=== PATIENT | male | born 1940 | race Caucasian/White ===

== ENCOUNTER 2021-04-20 16:04 | Emergency (ER) | payer OTHER ==
[2021-04-20] MEDS ORDERED: ONDANSETRON 4 MG/2 ML VIAL ONE (16:58)
[2021-04-20] MEDS ORDERED: NA CHLORIDE 0.9% 500 ML ONE (16:58)
[2021-04-20 16:59] LABS: Absolute Lymphocytes (CBC) 0.6 K/uL (0.7-4.9); Basophils % 0.1 % (0-1.3); Hematocrit 42.7 % (39.6-49.0); Lymphocytes % 5.8 % (15.3-44.8); MPV 8.3 fL (7.6-11.3); RBC Red Blood Cell Count 4.32 M/uL (4.33-5.43)
[2021-04-20 17:02] LABS: Protime INR 1.07
[2021-04-20 17:20] LABS: Urine Blood Negative (Negative); Urine Glucose Negative (Negative); Urine Protein Negative (Negative); Urine pH 7.5 (5.0-7.0)
[2021-04-20 17:24] LABS: ALT/SGPT 33 U/L (12-78); AST/SGOT 22 U/L (15-37); Albumin 3.8 g/dL (3.4-5.0); Alkaline Phosphatase 86 U/L (45-117); BUN Blood Urea Nitrogen 18 mg/dL (7-18); Bicarbonate 22 mmol/L (21-32); Bilirubin Direct 0.2 mg/dL (0-0.2); Glucose Level 143 mg/dL (74-106); Potassium 3.8 mmol/L (3.5-5.1); Protein, Total 8.3 g/dL (6.4-8.2); Sodium Level 140 mmol/L (136-145)
[2021-04-20 17:38] LABS: Barbiturates NEGATIVE (NEGATIVE); Benzodiazepines NEGATIVE (NEGATIVE); Cocaine NEGATIVE (NEGATIVE); METHAMPHETAM NEGATIVE (NEGATIVE); Methadone NEGATIVE (NEGATIVE); Opiates NEGATIVE (NEGATIVE); Phencyclidine NEGATIVE (NEGATIVE); THC Cannibis NEGATIVE (NEGATIVE)
--- NOTE | 2021-04-20 18:04 | RAD REPORT ---
EXAM DESCRIPTION: CTAbdomen Pelvis W Contrast - 04/20/2021 5:55 pm CLINICAL HISTORY: . diarrhea nausea, vomiting, abdominal cramping COMPARISON: No comparisons TECHNIQUE: Biphasic CT imaging of the abdomen and pelvis was performed with 100 ml non-ionic IV cont rast. All CT scans are performed using dose optimization technique as appropriate and may include automated exposure control or mA/KV adjustment according to patient size. FINDINGS: Lower chest: No acute abnormality. Liver: No acute abnormality or suspicious lesions. Biliary: No biliary ductal dilatation. Cholelithiasis . Stomach: No significant focal abnormality. Duodenum: No significant focal abnormality. Pancreas: No significant abnormality. Spleen: No significant abnormality. Adrenal: No suspicious lesions. Kidney/ureter: No hydronephrosis. No renal calculi. Renal cysts. Retroperitoneum: No retroperitoneal adenopathy. Vascular: No aneurysm. Atherosclerosis . Bowel: Nonspecific fluid throughout the small bowel and colon.. Peritoneum: No ascites or free air. Small fat containing inguinal hernias. Bladder: Grossly unremarkable. Reproductive: No adnexal masses. Bones: No acute fracture. Other: n/a IMPRESSION: Scattered segments of fluid-filled small bowel in diffuse fluid-filled colon concerning for enterocolitis. No bowel obstruction or other complicating features identified.
--- NOTE | 2021-04-20 18:34 | ER ---
Nurse's Notes [facility] Name: Eusebio Nolan Age: 80 yrs Sex: Male : 1940 Arrival Date: 04/20/2021 Time: 16:05 Bed 25 Private MD: Diagnosis: Diarrhea, unspecified;Vomiting Presentation: 04/20 16:10 Chief complaint: N/V/D and dizziness after eating mushrooms from front yard this morning. Coronavirus screen: At this time, the client does not indicate any symptoms associated with coronavirus-19. Ebola Screen: No symptoms or risks identified at this time. Initial Sepsis Screen: Does the patient meet any 2 criteria? No. Patient's initial sepsis screen is negative. Does the patient have a suspected source of infection? No. Patient's initial sepsis screen is negative. Risk Assessment: Do you want to hurt yourself or someone else? Patient reports no desire to harm self or others. Onset of symptoms was April 20, 2021. 16:10 Method Of Arrival: Ambulatory hb 16:10 Acuity: CHRISTINA 3 hb Triage Assessment: 17:20 General: Appears in no apparent distress. Behavior is calm, cooperative, appropriate oh for age. Historical: - Allergies: 16:12 No Known Allergies; hb - Immunization history:: Client reports receiving the 2nd dose of the Covid vaccine. - Social history:: Smoking status: Patient denies any tobacco usage or history of. Screenin:20 Abuse screen: Denies threats or abuse. Nutritional screening: No deficits noted. oh Tuberculosis screening: No symptoms or risk factors identified. Fall Risk None identified. Assessment: 17:19 GI: Reports nausea, vomiting, after eating mushrooms. oh 18:44 Reassessment: Patient appears in no apparent distress at this time. Patient and/or aj2 family updated on plan of care and expected duration. Pain level reassessed. Patient is alert, oriented x 3, equal unlabored respirations, skin warm/dry/pink. Patient denies pain at this time. Pain: Denies pain. GI: Abdomen is round. 18:55 Reassessment: Per provider (Hussein) discharge patient after COVID- 19 results.. aj2 Vital Signs: 16:10 BP 123 / 103; Pulse 77; Resp 16; Temp 97.4; Pulse Ox 100% on R/A; Weight 90.72 kg; hb Height 6 ft. (182.88 cm); Pain 2/10; 18:44 BP 150 / 80; Pulse 61; Resp 18; Temp 97.4; Pulse Ox 99% ; aj2 19:38 BP 144 / 81; Pulse 58; Resp 16; Temp 98.4(O); Pulse Ox 99% on R/A; cc4 16:10 Body Mass Index 27.12 (90.72 kg, 182.88 cm) hb Vitals: 18:44 Cardiac Rhythm Assessment Sinus rhythm. aj2 ED Course: 16:05 Patient arrived in ED. ds1 16:11 Triage completed. hb 16:12 Arm band placed on. hb 16:16 Hussein Mesa NP is PHCP. pm1 16:16 Igor Rivera MD is Attending Physician. pm1 17:20 Inserted saline lock: 22 gauge in left antecubital area, using aseptic technique. Blood oh collected. 17:21 Bed in low position. Call light in reach. Side rails up X 1. Adult w/ patient. oh 17:55 CT Abd/Pelvis - IV Contrast Only In Process Unspecified. EDMS 18:41 Jennifer Reyes is Primary Nurse. aj2 18:44 No apparent distress. Resting quietly. aj2 18:44 No provider procedures requiring assistance completed. IV is patent, is intact. aj2 19:38 IV discontinued, intact, bleeding controlled, No redness/swelling at site. Pressure cc4 dressing applied. Administered Medications: 16:40 Drug: NS 0.9% 500 ml Route: IV; Rate: bolus; Site: left antecubital; oh 20:03 Follow up: IV Intake: 1000ml cc4 16:40 Drug: Zofran (Ondansetron) 4 mg Route: IVP; Site: left antecubital; oh 19:38 Follow up: Response: No adverse reaction; Marked relief of symptoms; Nausea is decreasedcc4 Intake: 20:03 IV: 1000ml; Total: 1000ml. cc4 Outcome: 18:34 Discharge ordered by . pm1 19:38 Discharged to home ambulatory. cc4 19:38 Condition: improved 19:38 Discharge instructions given to patient, Instructed on discharge instructions, follow up and referral plans. medication usage, Demonstrated understanding of instructions, follow-up care, medications. 20:04 Patient left the ED. cc4 Signatures: Dispatcher [employer] EDMS Nereida Roberts ds1 Hussein Mesa, CARTON REPAIRER CARTON REPAIRER pm1 Juliet Paulino, RN RN Jennifer Mejia aj2 Rachel Bailey RN RN cc4 Jacob Medina RN RN oh
--- NOTE | 2021-04-20 18:34 | EDPHYS ---
Physician Documentation [facility] Name: Eusebio Nolan Age: 80 yrs Sex: Male : 1940 Arrival Date: 04/20/2021 Time: 16:05 Bed 25 Private MD: ED Physician Igor Rivera HPI: 04/20 16:30 This 80 yrs old Male presents to ER via Ambulatory with complaints of pm1 Nausea/Vomiting/Diarrhea, Dizziness. 16:30 The patient presents to the emergency department with vomiting, 1 times since the onset pm1 of symptoms, described as undigested food, Banana, diarrhea, 5 times since the onset of symptoms, abdominal pain, of the right lower quadrant and left lower quadrant, described as crampy, and does not radiate. Onset: The symptoms/episode began/occurred 3 hour(s) ago. Possible causes: Mushrooms in front yard and bad banana. The symptoms are aggravated by nothing. The symptoms are alleviated by nothing. Associated signs and symptoms: Pertinent positives: abdominal pain, Dizziness, Pertinent negatives: fever. Severity of symptoms: in the emergency department the symptoms are unchanged. The patient has not experienced similar symptoms in the past, Patient reports eating these mushrooms on multiple occasions throughout his life, last ingestion of these mushrooms 3 years ago. The patient has not recently seen a physician. Patient ate mushrooms found in his yard this morning at approximately 11 am with eggs. Ate an old bad banana around 1130. Onset of nausea vomiting and diarrhea 2 hours after ingestion. Historical: - Allergies: 16:12 No Known Allergies; hb - Immunization history:: Client reports receiving the 2nd dose of the Covid vaccine. - Social history:: Smoking status: Patient denies any tobacco usage or history of. ROS: 16:30 Constitutional: Negative for fever, chills, and weight loss, Cardiovascular: Negative pm1 for chest pain, palpitations, and edema, Respiratory: Negative for shortness of breath, cough, wheezing, and pleuritic chest pain. 16:30 Back: Negative for injury and pain, : Negative for injury, bleeding, discharge, and swelling, MS/Extremity: Negative for injury and deformity, Skin: Negative for injury, rash, and discoloration. 16:30 Abdomen/GI: Positive for nausea, vomiting, and diarrhea, abdominal cramps. 16:30 Neuro: Positive for dizziness, Negative for headache, numbness, tingling, weakness. 16:30 All other systems are negative. Exam: 16:30 Constitutional: This is a well developed, well nourished patient who is awake, alert, pm1 and in no acute distress. Head/Face: Normocephalic, atraumatic. 16:30 Back: No spinal tenderness. No costovertebral tenderness. Full range of motion. Skin: Warm, dry with normal turgor. Normal color with no rashes, no lesions, and no evidence of cellulitis. MS/ Extremity: Pulses equal, no cyanosis. Neurovascular intact. Full, normal range of motion. 16:30 Eyes: Exam is negative for acute changes, Extraocular movements: intact throughout, Conjunctiva: no acute changes, no injection, Sclera: no acute changes, icterus, is not appreciated. 16:30 ENT: Exam is negative for Mouth: is normal, no acute changes, Lips: normal, moist, Oral mucosa: normal, pink and intact, moist. 16:30 Neck: Exam negative for acute changes, ROM/movement: is normal, is supple, without pain, no range of motions limitations, no meningismus, no nuchal rigidity. 16:30 Cardiovascular: Rate: normal, Rhythm: regular, Pulses: no pulse deficits are appreciated, Heart sounds: normal, normal S1and S2, Edema: is not appreciated. 16:30 Respiratory: Exam negative for acute changes, respiratory distress, shortness of breath, Breath sounds: are clear throughout. 16:30 Abdomen/GI: Inspection: obese Palpation: abdomen is soft and non-tender, in all quadrants. 16:30 Neuro: Exam negative for acute changes, Orientation: is normal, Mentation: is normal, Motor: is normal, moves all fours, Gait: is steady, at a normal pace, without difficulty. 19:02 ECG was reviewed by the Attending Physician. rn Vital Signs: 16:10 BP 123 / 103; Pulse 77; Resp 16; Temp 97.4; Pulse Ox 100% on R/A; Weight 90.72 kg; hb Height 6 ft. (182.88 cm); Pain 2/10; 18:44 BP 150 / 80; Pulse 61; Resp 18; Temp 97.4; Pulse Ox 99% ; aj2 19:38 BP 144 / 81; Pulse 58; Resp 16; Temp 98.4(O); Pulse Ox 99% on R/A; cc4 16:10 Body Mass Index 27.12 (90.72 kg, 182.88 cm) hb MDM: 16:19 Patient medically screened. pm1 18:33 Data reviewed: vital signs. Data interpreted: Pulse oximetry: on room air is 100 %. pm1 Interpretation: normal. Counseling: I had a detailed discussion with the patient and/or guardian regarding: the historical points, exam findings, and any diagnostic results supporting the discharge/admit diagnosis, lab results, radiology results, the need for outpatient follow up, to return to the emergency department if symptoms worsen or persist or if there are any questions or concerns that arise at home. 18:34 Differential diagnosis: Nonspecific abd pain, viral gastroenteritis, gastroenteritis, pm1 Toxic effect of mushrooms, food poisoning from old banana, covid, flu. 04/20 16:30 Order name: Acetaminophen; Complete Time: 17:29 pm1 04/20 16:30 Order name: Basic Metabolic Panel; Complete Time: 17:29 pm1 04/20 16:30 Order name: CBC with Diff; Complete Time: 17:29 pm1 04/20 16:30 Order name: ETOH Level; Complete Time: 17:29 pm1 04/20 16:30 Order name: Hepatic Function; Complete Time: 17:29 pm1 04/20 16:30 Order name: PT-INR; Complete Time: 17:29 pm1 04/20 16:30 Order name: Ptt, Activated; Complete Time: 17:29 pm1 04/20 16:30 Order name: Salicylate; Complete Time: 17:36 pm1 04/20 16:30 Order name: Urine Drug Screen; Complete Time: 17:41 pm1 04/20 16:30 Order name: CT Abd/Pelvis - IV Contrast Only; Complete Time: 18:06 pm1 04/20 16:35 Order name: Flu; Complete Time: 17:41 pm1 04/20 17:19 Order name: Urine Dipstick-Ancillary; Complete Time: 17:29 EDMS 04/20 19:05 Order name: SARS-COV-2 RT PCR; Complete Time: 19:29 EDMS 04/20 16:30 Order name: EKG; Complete Time: 16:31 pm1 04/20 16:30 Order name: EKG - Nurse/Tech; Complete Time: 17:22 pm1 04/20 16:30 Order name: IV Saline Lock; Complete Time: 17:07 pm1 04/20 16:30 Order name: Labs collected and sent; Complete Time: 17:07 pm1 04/20 16:30 Order name: Urine Dipstick-Ancillary (obtain specimen); Complete Time: 17:15 pm1 EC:02 Rate is 65 beats/min. Rhythm is regular. QRS [place] is Normal. [place] interval is normal. QRS rn interval is prolonged at 144 msec. QT interval is normal. No Q waves. No ST changes noted. Clinical impression: Normal ECG and LBBB. Interpreted by me. Reviewed by me. Administered Medications: 16:40 Drug: NS 0.9% 500 ml Route: IV; Rate: bolus; Site: left antecubital; oh 20:03 Follow up: IV Intake: 1000ml cc4 16:40 Drug: Zofran (Ondansetron) 4 mg Route: IVP; Site: left antecubital; oh 19:38 Follow up: Response: No adverse reaction; Marked relief of symptoms; Nausea is decreasedcc4 Disposition: 04/21 07:00 Co-signature as Attending Physician, Igor Rivera MD I agree with the assessment and rn plan of care. Attestation: The patient's history, exam findings, diagnostics, and a summary of any interventions or procedures was reviewed in detail with Hussein Mesa NP. Disposition Summary: 04/20/21 18:34 Discharge Ordered Location: Home pm1 Problem: new pm1 Symptoms: have improved pm1 Condition: Stable pm1 Diagnosis - Diarrhea, unspecified pm1 - Vomiting pm1 Followup: pm1 - With: Emergency Department - When: As needed - Reason: Worsening of condition Followup: pm1 - With: Private Physician - When: 2 - 3 days - Reason: Recheck today's complaints, Continuance of care, Re-evaluation by your physician Discharge Instructions: - Discharge Summary Sheet pm1 - Diarrhea, Adult pm1 - Food Poisoning pm1 - Nausea and Vomiting, Adult pm1 Forms: - Medication Reconciliation Form pm1 - Thank You Letter pm1 - Antibiotic Education pm1 - Prescription Opioid Use pm1 Prescriptions: - ondansetron 4 mg Oral tablet,disintegrating - place 1 tablet by TRANSLINGUAL route every 8 hours As needed; 12 tablet; pm1 Refills: 0, Product Selection Permitted Signatures: Dispatcher [employer] EDMS Igor Rivera MD MD rn Marinas, Patrick, FREIGHT SOLICITOR FREIGHT SOLICITOR pm1 Juliet Paulino RN RN Jacob Emery RN RN oh Cooper, Christie RN cc4 Corrections: (The following items were deleted from the chart) 04/20 17:56 16:35 CORONAVIRUS+.BRZ ordered. EDMS EDMS 18:36 18:34 Differential diagnosis: Nonspecific abd pain, viral gastroenteritis, pm1 gastroenteritis, Toxic effect of mushrooms, food poisoning from old banana pm1 18:53 16:30 Suicide Screening ([place]) ordered. pm1 aj2
[2021-04-20 20:12] VITALS: O2SAT 99
[2021-04-20 20:13] VITALS: BP 144/81; TEMP 98.4
--- NOTE | 2021-04-21 18:10 | EKG ---
Test Date: 2021-04-20 Test Time: 17:30:18 Dialysis Patient Care Technician: RAVI MEASUREMENT RESULTS: Intervals: Rate: 65 IL: 166 QRSD: 144 QT: 442 QTc: 459 [place]: P: 20 IL: 166 QRS: 10 T: 107 INTERPRETIVE STATEMENTS: Normal sinus rhythm with sinus arrhythmia Left bundle branch block Abnormal ECG Compared to ECG 12/18/2006 11:50:56 Left bundle-branch block now present Electronically Signed On 04-21-21 18:06:01 CDT by Zaid Batres
== END 2021-04-20 20:04 | disposition home or self-care (01) ==
LOC: ER 16:04
DX: R19.7 Diarrhea, unspecified (principal); Z20.822 Contact with and (suspected) exposure to COVID-19
CPT/HCPCS: 93005; 85025; 80048; 36415; 80320; 80329 ×2; 85610; 80076; 85730; 81003; 80307; 87804 ×2; 74177; 96374; 99284; U0003; Q9967; J7040; J2405